=== PATIENT | female | born 1990 | race Caucasian/White ===

== ENCOUNTER 2017-03-23 11:55 | Emergency (ER) | payer SELFPAY ==
[2017-03-23 12:19] VITALS: BP 113/80
== END 2017-03-23 15:54 | disposition home or self-care (01) ==
LOC: ED 11:55
DX: T78.40XA Allergy, unspecified, initial encounter (principal); F17.200 Nicotine dependence, unspecified, uncomplicated; F12.10 Cannabis abuse, uncomplicated; Z88.5 Allergy status to narcotic agent; Z91.013 Allergy to seafood
CPT/HCPCS: 99281